=== PATIENT | male | born 1975 | race Caucasian/White ===

== ENCOUNTER 2023-07-10 10:22 | Emergency (ER) | payer BC, SELFPAY ==
[2023-07-10 10:25] VITALS: BP 158/102
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
[2023-07-10] MEDS: ADACEL 0.5 ML IM (11:10)
== END 2023-07-10 12:20 | disposition home or self-care (01) ==
LOC: EMR 10:22
PROVIDERS: EMERGENCY PHYSICIAN Emergency Medicine; FAMILY PHYSICIAN Nurse Practitioner
DX: S61.012A Laceration without foreign body of left thumb without damage to nail, initial encounter (principal); W34.00XA Accidental discharge from unspecified firearms or gun, initial encounter; Z23 Encounter for immunization
CPT/HCPCS: 99284; 90471; 73140; 90715